=== PATIENT | female | born 1965 | race Asian ===

== ENCOUNTER 2017-06-19 15:28 | Outpatient (CLI) | payer OTHER ==
[2017-06-19 17:08] LABS: Hemoglobin 14.8 g/dL (12.0-16.0); Mean Corpuscular HGB CONC 33.6 g/dL (32.0-36.0); Mean Corpuscular Hemoglobin 30.6 pg (27.0-31.0); Mean Platelet Volume 6.5 fL (7.4-10.4); Platelet Count 305 thou/uL (130-400); RBC Distribution Width 12.5 % (11.5-14.5); Red Blood Cell (RBC) Count 4.83 mill/uL (4.20-5.40)
[2017-06-19 17:31] LABS: BHCG - Serum Negative (NEGATIVE); Pregs Control Background? CLEAR/WHITE (CLR/WHITE); Pregs Control Bar Appear? YES (CONTROL BAR)
--- NOTE | 2017-06-27 19:50 | EKG ---
Test Reason : Blood Pressure : / mmHG Vent. Rate : 085 BPM Atrial Rate : 085 BPM P-R Int : 136 ms QRS Dur : 074 ms QT Int : 376 ms P-R-T Axes : 071 069 044 degrees QTc Int : 447 ms Normal sinus rhythm Normal ECG No previous ECGs available Confirmed by ALLI MACIAS (2) on 06/27/2017 7:50:10 PM Referred By: TORSTEN Confirmed By:ALLI MACIAS
== END 2017-06-19 15:29 | disposition home or self-care (01) ==
LOC: LABBT 15:28 → UNDOADMIN 06-20 11:14 → 3SE 06-20 11:14
PROVIDERS: ATTEND Obstetrics & Gynecology
DX: Z01.812 Encounter for preprocedural laboratory examination (principal); N95.0 Postmenopausal bleeding
CPT/HCPCS: 84703; 85027; 86850; 86900; 86901; 93005; 93010

== ENCOUNTER 2017-06-19 15:30 | Inpatient (IN) | payer OTHER ==
--- NOTE | 2017-06-19 15:24 | HP ---
DATE OF PLANNED PROCEDURE: 06/20/2017 PREOPERATIVE DIAGNOSIS: Abnormal uterine bleeding with recent history of endometrial hyperplasia. PROCEDURE TO BE PERFORMED: Robotic assisted total laparoscopic hysterectomy with bilateral salpingectomy. HISTORY OF PRESENT ILLNESS: Ms. Divya Castelan is a 51-year-old G2, P1-0-1-1, who came to me for vaginal bleeding and a known history of endometrial hyperplasia without atypia based on a biopsy completed at [facility] with Dr. Mobley in 02/2017. The patient had an ultrasound there as well with a uterus that was approximately 10 cm and endometrial stripe that was 10 mm. The patient was started on Provera in February and was then transitioned to Megace to achieve amenorrhea. At the time of her initial evaluation at [facility], the patient had anemia with hemoglobin of 8. Prior to 02/2017, the patient has been bleeding heavy for approximately 2 months. She gives no history of going through menopause, but a history of irregular cycles for approximately 12 months. The patient came to me for evaluation and discussion of definitive surgical management. When I first saw her in May, she was bleeding off and on with Megace once daily and agreed to repeat endometrial biopsy, desiring definitive management with hysterectomy. The patient's Megace was increased to twice a day and since then she has not had any bleeding. Her repeat endometrial biopsy resulted with no hyperplasia or malignancy; however, microscopic description describes crowded glands and focal squamous morule formation. These findings were reviewed briefly with OBSTETRICAL ANESTHESIOLOGIST and Oncology, who had no concerns about hysterectomy here locally at [place] for this pathology description. PAST MEDICAL HISTORY: Hypertension and anemia. SURGICAL HISTORY: D and C, CS x 1 CURRENT MEDICATIONS: Lisinopril once a day, potassium, and Megace 40 mg twice a day. ALLERGIES: No known drug or latex allergies. OBSTETRICAL HISTORY: 2, para 1 with one section and one miscarriage. GYNECOLOGIC HISTORY: Most recent Pap smear is normal. No history of STD or PID. Last menstrual period on 05/24/2017. SOCIAL HISTORY: No alcohol, tobacco, or drug use. FAMILY HISTORY: Significant for diabetes and stroke. No contributing cancer history in the family. REVIEW OF SYSTEMS: Negative except as stated above. PHYSICAL EXAMINATION: VITAL SIGNS: Weight 124 pounds, BMI 28.8, blood pressure 124/72. GENERAL: No acute distress. Alert and oriented. LUNGS: Nonlabored breathing. ABDOMEN: Soft, palpable, nontender, no masses, no hepatosplenomegaly. GENITOURINARY: Normal external female genitalia, normal urethral meatus, normal vaginal mucosa, no vaginal discharge. Normal cervix with no lesions, no cervical motion tenderness. Uterine position was anteverted, nonenlarged, and nontender. No adnexal masses. NEUROLOGIC: The patient is oriented to person, time, and place. SKIN: No rashes. EXTREMITIES: No clubbing, cyanosis or edema. MUSCULOSKELETAL: Normal range of motion. ASSESSMENT AND PLAN: Ms. Divya Castelan is a 51-year-old with history of anemia and endometrial hyperplasia without atypia with persistent bleeding, desiring definitive management with laparoscopic hysterectomy and bilateral salpingo-oophorectomy. We have discussed the risk and benefits, and alternative management options in detail. The patient understands the risks are to include, but not limited to bleeding, infection, emergent laparotomy, possible need for blood products or additional antibiotics, inability to fully diagnose and treat all conditions at the time of surgery, and the possible need for future medical and/or surgical management especially if endometrial or uterine malignancy is noted postoperatively on pathologic review. The patient also understands that with bilateral oophorectomy is possible that she may experience climacteric menopausal symptoms early on in her postoperative recovery and that hormone replacement may be necessary to control her symptoms. The patient's questions have been answered to her satisfaction and she agrees to proceed with the procedure as listed above. ROBERT
[2017-06-19 15:56] VITALS: BMI 29.2
[2017-06-20] MEDS ORDERED: Fentanyl 250 MCG/5 ML VIAL ONE (06:28)
[2017-06-20] MEDS ORDERED: Midazolam HCl 2 mg/2 ml Vial ONE ×2 (06:28→07:11)
[2017-06-20] MEDS ORDERED: CEFAZOLIN/Water 2 GM/20 ML SYRINGE ONE (06:35)
[2017-06-20] MEDS ORDERED: Bupivacaine HCl 0.5%/Epinephrine 1:200,000/PF 30 ml Vial ONE (06:36)
[2017-06-20] MEDS ORDERED: Metoclopramide HCl 10 MG/2 ML VIAL ONE ×2 (06:55→17:15)
[2017-06-20] MEDS ORDERED: Famotidine/PF 20 mg/2ml Vial ONE (08:06)
--- NOTE | 2017-06-20 09:27 | PDOC.OP ---
Operative Note - Operative Note Operative Note: Prep Dx: perimenop bleeding, hx of endometrial hyperplasia, anemia Post Op Dx: Same Surg: [facility] Assist: Abdulkadir Procedure performed: RATLH/BSO w repair of right vaginal sidewall laceration Complications: None UOP: 200ml EBL: 150ml Intraop findings: enlarged uterus, normal tubes and ovaries bilaterally, no intraabdominal adhesions Specimen removed: Uterus, fallopian tubes and ovaries
[2017-06-20] MEDS ORDERED: Promethazine HCl 25 MG/ML VIAL IM PRN (09:31)
[2017-06-20] MEDS ORDERED: diphenhydrAMINE 25 MG CAP PO PRN (09:31)
[2017-06-20] MEDS ORDERED: traMADol HCl 50 MG TAB PO PRN (09:31)
[2017-06-20] MEDS ORDERED: Meperidine HCl/PF 25 MG/ML VIAL SLOW IVP PRN (09:31)
[2017-06-20] MEDS ORDERED: Simethicone Chewable 80 MG TAB PO PRN (09:31)
[2017-06-20] MEDS ORDERED: Morphine 4 MG/ML Carpuject SLOW IVP PRN (09:31)
[2017-06-20] MEDS ORDERED: Acetaminophen/Codeine 30-300mg Tablet PO PRN ×2 (09:31)
[2017-06-20] MEDS ORDERED: Zolpidem Tartrate 5 MG TAB PO PRN (09:31)
[2017-06-20] MEDS ORDERED: Ondansetron HCl/PF 4 MG/2 ML Vial IVP PRN (09:31)
[2017-06-20] MEDS ORDERED: Bisacodyl 10 MG SUPP PR PRN (09:31)
[2017-06-20 10:55] VITALS: TEMP 97.9
[2017-06-20] MEDS: Gabapentin 300 MG CAP PO SCH ×2 (10:55→15:15)
[2017-06-20] MEDS: Dextrose 5%-Lactated Ringers 1,000 ML IV SCH ×2 (10:55→17:24)
[2017-06-20] MEDS: Estradiol 0.05mg/24 Hour Patch (Weekly) TD SCH ×2 (10:55→15:12)
--- NOTE | 2017-06-20 11:49 | OP ---
DATE OF PROCEDURE: 06/20/2017 PREOPERATIVE DIAGNOSES: Perimenopausal bleeding with recent history of endometrial hyperplasia witho ut atypia and anemia. POSTOPERATIVE DIAGNOSIS: Perimenopausal bleeding with recent history of endometrial hyperplasia with out atypia and anemia. PROCEDURE PERFORMED: Robotic-assisted total laparoscopic hysterectomy with bilateral salpingo-oophor ectomy, and repair of right vaginal sidewall laceration. SURGEON: Jhonatan Barr D.O. SOFTWARE ENGINEER KERNEL: Nicole Panchal M.D. COMPLICATIONS: None. ESTIMATED BLOOD LOSS: 150 mL. FINDINGS: 1. Enlarged globular uterus. 2. Normal appearing tubes and ovaries bilaterally. 3. No intraabdominal adhesions. 4. Surgical sites hemostatic. PROCEDURE DETAILS: The patient was taken back to the OR with IV fluids running. Once she was in the OR, she was placed in dorsal supine position and general anesthesia was obtained. Once the patient was asleep, she was placed in low dorsal lithotomy position and the abdomen and vagina were prepped a nd draped in normal fashion for gynecologic laparoscopy. Clark catheter was placed into her bladder and drained. A Kobi syringe was placed at the end of the Clark tip for bladder manipulation if nee ded during the case. An operative speculum was placed into the vagina. The cervix was visualized, g rasped with a single tooth tenaculum and sounded to approximately 7 cm. A Appetizer Mobile manipulator was a ssembled with a 3.5 cm cup and a 6 cm tip and it was placed into the uterus and the vagina for manipu lation in the normal fashion. The operative speculum and tenaculum were removed. The surgeon's glov es were changed and attention was turned to the laparoscopic portion of the case. At the supraumbili all fold 0.5% Marcaine was injected into the subcutaneous layer. A 12 mm skin incision was made with the scalpel. A Veress needle was placed through this incision into the peritoneal cavity, which was insufflated without difficulty. Once the abdominal cavity was insufflated, the Veress needle was re moved. The 12 mm trocar was placed through the incision without difficulty. The laparoscope was the n guided through this port with the above findings noted. The patient was then placed in Trendelenbu rg position. A right lower quadrant 8 mm trocar was placed after local anesthesia was placed below t he skin and an 8 mm skin incision was made with the scalpel. This port was placed under direct visua lization without difficulty. In similar fashion, a right upper quadrant 11 mm and a left lower quadr ant 8 mm port were also placed in similar fashion and without difficulty. Once all 4 ports were plac ed, the robotic arms were docked at the patient's bedside and the instruments were passed under direc t visualization into the operating field. Using monopolar scissor and bipolar cautery the dissection began on the patient's right side. The right IP ligament was identified, it was cauterized and harp sected with hemostasis noted. After the IP ligament was cauterized the round ligament on the right s yoshi was identified. It was cauterized and divided and transected, dividing the broad ligament into a nterior and posterior leafs. The anterior and posterior leaves were then dissected down with fine di ssection technique to the level of the uterine artery. Uterine artery was then skeletonized. The an terior leaf of the broad ligament was taken down towards the level of the cervix and a bladder flap w as created by layering the peritoneal tissues1 by 1 and gently directing the bladder away from the ce rvix and planned colpotomy site. The uterine arteries were then cauterized on the patient's right si de and transected with the blood supply taken down on the patient's right side and the dissection com plete on the right side, attention was turned to the contralateral side. In similar fashion, the lef t IP ligament was identified, cauterized and transected. The round ligament on the patient's left si de was cauterized, transected and divided into anterior and posterior leafs. The broad ligament was then skeletonized around the uterine artery on the patient's left side and the bladder flap was created anteriorly to meet the contralateral dissection. The bladder was then back filled and noted to be well away from the planned colpotomy site. The uterine arteries were then co agulated and transected on the left side. After this was completed, the colpotomy portion of the pro cedure began anteriorly. The colpotomy was completed circumferentially using both monopolar and bipo lar instruments as needed for hemostasis and dissection of the tissues. Once the colpotomy was compl ete, the uterine specimen was retracted into the vagina and removed for pathologic review. A sterile sponge was placed into the vagina to maintain pneumoperitoneum. The surgical pedicles and vaginal c uff were copiously irrigated and suctioned dry. Any small areas of bleeding along the vaginal cuff w ere controlled with bipolar cautery. With no areas of bleeding noted the suture was introduced into the operating field. A Stratafix suture was used to close the vaginal cuff in a running layer. Afte r the first layer closure was complete, a second layer was directed in the opposite direction for a 2 -layer closure of the vaginal cuff. Once the vaginal cuff was closed, the suture was trimmed and the needle was removed from the operative field. The vaginal cuff surgical sites and gutters were irrig ated again and suctioned dry. The pressure was dropped to 4-6 mmHg with no areas of bleeding noted. All instruments were then removed from the abdomen. The gas was released from the abdomen. The cou nts were correct. The patient was taken out of Trendelenburg position. The abdomen was cleaned and dried. The supraumbilical fascial incision was closed with Vicryl suture. All 4 skin incisions were closed with Monocryl suture and dressed with Dermabond dressing. The Clark catheter bag was placed at the tip of the Clark catheter. The vagina was then inspected with a small amount of bleeding note d from the right vaginal side wall where a small 2 cm laceration occurred with the delivery of the la rge uterine specimen through the vagina. Hemostasis and uatsdin of anatomy was achieved with chr omic suture in this vaginal mucosa. Once this was completed, a speculum was used to inspect the vagi nal cuff with no bleeding noted. The patient was then cleaned, dried, taken out of lithotomy positio n. She was extubated, and transferred to recovery room in good condition.
[2017-06-20] MEDS ORDERED: Ketorolac Tromethamine 30 MG/ML VIAL IVP SCH ×2 (12:00→15:30)
[2017-06-20 16:18] VITALS: BP 134/71
[2017-06-20] MEDS ORDERED: Ondansetron HCl/PF 4 MG/2 ML Vial ONE (17:15)
[2017-06-20] MEDS ORDERED: Lidocaine 1% PF 5 ML VIAL ONE (17:15)
[2017-06-20] MEDS ORDERED: Glycopyrrolate 0.2 MG/ML 5 ML SYRINGE ONE (17:15)
[2017-06-20] MEDS ORDERED: Ketorolac Tromethamine 30 MG/ML VIAL ONE (17:15)
[2017-06-20] MEDS ORDERED: diphenhydrAMINE 50 MG/ML VIAL ONE (17:15)
[2017-06-20] MEDS ORDERED: Propofol 200 MG/20 ML VIAL ONE (17:15)
[2017-06-20] MEDS ORDERED: Dexamethasone 20 MG/5 ML VIAL ONE (17:15)
[2017-06-21] MEDS ORDERED: Lisinopril 20 MG TAB PO SCH (09:00)
[2017-06-21] MEDS ORDERED: Multivit, Therapeutic 1 TAB PO SCH (09:00)
[2017-06-21] MEDS ORDERED: Potassium Chloride 10 MEQ TAB PO SCH (09:00)
[2017-06-25] MEDS ORDERED: Ibuprofen 800 MG TAB PO SCH (22:00)
--- NOTE | 2017-07-02 13:38 | PQF ---
Clarissa HesterBRIAN Duval DO [id number] CLINICAL DOCUMENTATION CLARIFICATION FORM: POST DISCHARGE Addendum to original discharge summary date: ___07/03/17_, vaginal laceration repair, inherent to the procedure and due to large specimen Late entry note date: __ DATE: 07/02/17 ATTN: Dr. Barr Please exercise your independent, professional judgment in responding to the clarification form. Clinical indicators are provided on the bottom of this form for your review Please check appropriate box(s): In the description of the operative procedure _"a small 2 cm laceration occured with the delivery of the large uterine specimen through the vagina. Hemostasis and rastafarian of anatomy was achieved with chromic suture in this vagina mucosa". If possible would you please further clarify if this was: [ x ] Incidental occurrence inherent in the surgical procedure [ ] Complication of the procedure [ ] Other [ ] Unable to determine For continuity of documentation, please document condition throughout progress notes and discharge summary. Thank You. CLINICAL INDICATORS - SIGNS / SYMPTOMS / LABS Cite section of OP Report where information is found. RISK FACTORS: "large uterine specimen" per the procedure note TREATMENTS: repaired with suture (This form is maintained as a part of the permanent medical record) 2014 [employer], [employer]. All Rights Reserved ANDREAS Craig, CCS [email or web address] [phone] ROBERT
== END 2017-06-20 19:06 | disposition home or self-care (01) | DRG 743 ==
LOC: SURG A 06-20 06:02 → 3SE 06-20 11:29
PROVIDERS: ADMIT Obstetrics & Gynecology; ATTEND Obstetrics & Gynecology
PROC: 0UT94ZZ Resection of Uterus, Percutaneous Endoscopic Approach (ICD-10-PCS; principal; 2017-06-20)
PROC: 0UB74ZZ Excision of Bilateral Fallopian Tubes, Percutaneous Endoscopic Approach (ICD-10-PCS; 2017-06-20)
PROC: 8E0W4CZ Robotic Assisted Procedure of Trunk Region, Percutaneous Endoscopic Approach (ICD-10-PCS; 2017-06-20)
PROC: 0UQGXZZ Repair Vagina, External Approach (ICD-10-PCS; 2017-06-20)
DX: N95.0 Postmenopausal bleeding (principal); I10 Essential (primary) hypertension; N93.9 Abnormal uterine and vaginal bleeding, unspecified
CPT/HCPCS: 88307; 88325; A4216; J0131; J0670; J1100; J1200; J1885; J2001; J2250; J2405; J2704; J2765; J3010; S0028

== ENCOUNTER 2021-10-05 15:11 | Outpatient (CLI) | payer OTHER | END 2021-10-05 15:12 | disposition home or self-care (01) | LOC: BICRAD 15:11 | PROVIDERS: ATTEND Family Medicine | DX: M25.562 Pain in left knee (principal); M76.32 Iliotibial band syndrome, left leg ==